=== PATIENT | female | born 1975 | race African-American/Black ===

== ENCOUNTER 2016-09-30 17:36 | Observation (INO) | payer SELFPAY ==
[~2016-09-30] VITALS: Ht 170.2 cm; Wt 107.0 kg
[~2016-09-30 17:36] MED LIST: 1-ME1LIQ PO; ATEN-102 PO; BUTA1CAP PO; GLUCTAB PO; HYDR-3535 PO; INSU100V SQ; LISI-587 PO; NAPR-576 PO; XANA2TAB2 PO; ZOFR4TAB3 SL
[2016-09-30 17:39] VITALS: BP_SYST 194; BP_SYST 202; BP_DIAS 112; BP_DIAS 116; PULSE 77; RESP 17; TEMP 98.2; O2SAT 98
[2016-09-30] MEDS ORDERED: NITROGLYCERIN 0.4 MG SL 25 TABS/BTL SL ONE (18:00)
[2016-09-30] MEDS ORDERED: MORPHINE SULFATE 4 MG/ML INJ IV PUSH ONE (18:00)
[2016-09-30] MEDS ORDERED: ASPIRIN 81 MG CHEW TAB PO ONE (18:00)
[2016-09-30] MEDS ORDERED: ONDANSETRON HCL 4 MG/2 ML VIAL IV PUSH ONE (18:00)
[2016-09-30] MEDS ORDERED: SODIUM CHLORIDE 0.9% FLUSH 10 ML FLUSH IVF PRN (18:00)
--- NOTE | 2016-09-30 18:00 | PD ---
HPI Chief Complaint: Chest Pain Time Seen by Provider: 17:47 Travel History International Travel<30 days: No Contact w/Intl Traveler<30days: No Traveled to known affect area: No History of Present Illness HPI The patient is a 40-year-old after [place]og[place] female who presents emergency department for chest pain. The patient states she developed chest pain or proximal V6 a.m. The patient states she was awakened by left-sided, sharp, stabbing chest pain that radiates into the left arm. The patient states the pain radiates into the left arm is associated with mild numbness to left arm. The pain is intermittent, sharp, and lasts approximately 20-30 seconds and then self resolves. She denies any exertional symptoms associated with her chest pain and denies any exacerbation of her pain with movement. The patient does have a history of hypertension and diabetes, denies any known history of coronary artery disease, hyperlipidemia, or tobacco use. The patient thinks she had a negative stress test one year ago at [facility]. The patient denies any nausea, vomiting, or diaphoresis. The patient denies any previous history of pulmonary embolism or DVT. She denies any recent hospitalizations or surgeries. However, she did recently travel from [place] to [place], as of yesterday. PFSH Past Medical History Anemia: Yes Anxiety: Yes Cardiovascular Problems: Yes Chemotherapy: No Chest Pain: No Congestive Heart Failure: No Diabetes: Yes Endocrine: Yes Genitourinary: No Headaches: Yes Hypertension: Yes Immune Disorder: No Musculoskeletal: No Neurologic: No Psychiatric: No Reproductive: No Respiratory: No Migraines: Yes Triglycerides - High: Yes ?: Not LMP: 09/2016 : 0 Para: 0 Past Surgical History Other Surgery: No Social History Alcohol Use: Yes (OCCASIONALLY) Tobacco Use: No Substance Use: Yes (POT OCC) Allergies-Medications (Allergen,Severity, Reaction): Coded Allergies: No Known Allergies (Unverified , 09/30/16) Reported Meds & Prescriptions Reported Meds & Active Scripts Active Reported Humalog Inj (Insulin Human Lispro) 1,000 Unit/10 Ml Vial 25 Units SQ DAILY IN THE PM Humalog Inj (Insulin Human Lispro) 1,000 Unit/10 Ml Vial 35 Units SQ DAILY IN THE AM Metformin (Metformin HCl) 500 Mg Tab 500 Mg PO BID With meals Coreg (Carvedilol) 3.125 Mg Tab 3.125 Mg PO BID Lisinopril-Hctz 20-25 Mg Tab 1 Tab PO BID Review of Systems Except as stated in HPI: all other systems reviewed are Neg General / Constitutional: No: Fever HENT: No: Lightheadedness Cardiovascular: Positive: Chest Pain or Discomfort, No: Diaphoresis, Dyspnea on exertion Respiratory: Positive: Shortness of Breath Gastrointestinal: No: Nausea, Vomiting, Abdominal Pain Musculoskeletal: No: Weakness, Edema Neurologic: No: Dizziness Physical Exam Narrative GENERAL: Awake, alert, 40-year-old female who appears her stated age and is in no acute respiratory distress. SKIN: Focused skin assessment warm/dry. HEAD: Atraumatic. Normocephalic. EYES: No injection or drainage. ENT: No nasal bleeding or discharge. Mucous membranes pink and moist. NECK: Trachea midline. No JVD. CARDIOVASCULAR: Regular rate and rhythm. No murmur appreciated. Palpation the chest wall does not reproduce her symptoms. RESPIRATORY: No accessory muscle use. Clear to auscultation. Breath sounds equal bilaterally. GASTROINTESTINAL: Abdomen soft, non-tender, nondistended. No rebound tenderness. MUSCULOSKELETAL: No obvious deformities. No clubbing. No cyanosis. No edema. Calves are soft bilaterally. NEUROLOGICAL: Awake and alert. No obvious cranial nerve deficits. Motor grossly within normal limits. Normal speech. PSYCHIATRIC: Appropriate mood and affect; insight and judgment normal. Data Data Last Documented VS Vital Signs Date Time Temp Pulse Resp B/P Pulse Ox O2 Delivery O2 Flow Rate FiO2 09/30/16 19:01 85 16 152/86 98 Room Air 09/30/16 17:39 98.2 Orders Electrocardiogram (09/30/16 17:54) Ckmb (Isoenzyme) Profile (09/30/16 17:54) Complete Blood Count With Diff (09/30/16 17:54) Comprehensive Metabolic Panel (09/30/16 17:54) D-Dimer (09/30/16 17:54) Magnesium (Mg) (09/30/16 17:54) Prothrombin Time / Inr (Pt) (09/30/16 17:54) Act Partial Throm Time (Ptt) (09/30/16 17:54) Troponin I (09/30/16 17:54) Lipase (09/30/16 17:54) Chest, Single Ap (09/30/16 17:54) Ecg Monitoring (09/30/16 17:54) Bilateral Bp Monitoring (09/30/16 17:54) Iv Access Insert/Monitor (09/30/16 17:54) Oximetry (09/30/16 17:54) Oxygen Administration (09/30/16 17:54) Aspirin Chew (Aspirin Chew) (09/30/16 18:00) Morphine Inj (Morphine Inj) (09/30/16 18:00) Sodium Chloride 0.9% Flush (Ns Flush) (09/30/16 18:00) Nitroglycerin Sl (Nitrostat Sl) (09/30/16 18:00) Ondansetron Inj (Zofran Inj) (09/30/16 18:00) CKMB (09/30/16 18:10) CKMB% (09/30/16 18:10) Activity Bed Rest With Brp (09/30/16 20:06) Vital Signs (Adult) Q4H (09/30/16 20:06) Cardiac Rhythm .As Directed (09/30/16 20:06) ^ Notify Dr: Other .PRN (09/30/16 20:06) ^ Notify Dr. Parameters (09/30/16 20:06) Resp Oxygen Nasal Cannula (09/30/16 ) Ckmb (Isoenzyme) Profile (09/30/16 21:10) Ckmb (Isoenzyme) Profile (10/01/16 00:10) Troponin I (09/30/16 21:10) Troponin I (10/01/16 00:10) Electrocardiogram (09/30/16 21:10) Electrocardiogram (10/01/16 00:10) ^ Obtain (09/30/16 20:06) Sodium Chloride 0.9% Flush (Ns Flush) (09/30/16 20:15) Nutritional Services Host / Telemetry NATASHA.Q8H (09/30/16 20:06) Admit Order (Ed Use Only) (09/30/16 ) Labs Laboratory Tests Test 09/30/16 18:10 White Blood Count 7.6 TH/MM3 Red Blood Count 6.43 MIL/MM3 Hemoglobin 13.0 GM/DL Hematocrit 42.2 % Mean Corpuscular Volume 65.6 FL Mean Corpuscular Hemoglobin 20.3 PG Mean Corpuscular Hemoglobin 30.9 % Concent Red Cell Distribution Width 16.5 % Platelet Count 279 TH/MM3 Mean Platelet Volume 10.1 FL Neutrophils (%) (Auto) 70.9 % Lymphocytes (%) (Auto) 22.3 % Monocytes (%) (Auto) 5.0 % Eosinophils (%) (Auto) 1.0 % Basophils (%) (Auto) 0.8 % Neutrophils # (Auto) 5.4 TH/MM3 Lymphocytes # (Auto) 1.7 TH/MM3 Monocytes # (Auto) 0.4 TH/MM3 Eosinophils # (Auto) 0.1 TH/MM3 Basophils # (Auto) 0.1 TH/MM3 CBC Comment AUTO DIFF Differential Comment AUTO DIFF CONFIRMED Platelet Estimate NORMAL Platelet Morphology Comment NORMAL Ovalocytes 1+ Prothrombin Time 10.3 SEC Prothromb Time International 0.9 RATIO Ratio Activated Partial 26.6 SEC Thromboplast Time D-Dimer Quantitative (PE/DVT) 0.44 MG/L FEU Sodium Level 136 MEQ/L Potassium Level 3.1 MEQ/L Chloride Level 98 MEQ/L Carbon Dioxide Level 29.6 MEQ/L Anion Gap 8 MEQ/L Blood Urea Nitrogen 6 MG/DL Creatinine 0.77 MG/DL Estimat Glomerular Filtration 102 ML/MIN Rate Random Glucose 353 MG/DL Calcium Level 8.6 MG/DL Magnesium Level 2.0 MG/DL Total Bilirubin 0.6 MG/DL Aspartate Amino Transf 13 U/L (AST/SGOT) Alanine Aminotransferase 18 U/L (ALT/SGPT) Alkaline Phosphatase 109 U/L Total Creatine Kinase 110 U/L Creatine Kinase MB 0.7 NG/ML Troponin I LESS THAN 0.02 NG/ML Total Protein 7.6 GM/DL Albumin 3.6 GM/DL Lipase 221 U/L [facility] Medical Decision Making Medical Screen Exam Complete: Yes Emergency Medical Condition: Yes Medical Record Reviewed: Yes Interpretation(s) EKG reveals sinus bradycardia with a heart rate of 59. Inverted T waves noted in lead 2, 3, and aVF. Last Impressions Chest X-Ray 09/30/16 8214 Signed Impressions: Service Date/Time: Friday, September 30, 2016 18:18 - CONCLUSION: No acute disease. Tej Oswald MD Differential Diagnosis Differential diagnosis includes hypertensive urgency, hypertensive emergency, acute coronary syndrome, pulmonary embolism, GERD, esophageal spasm, pneumonia, radiculopathy. Narrative Course IV was established, labs are drawn and sent, and the patient was placed on cardiac telemetry monitoring and continuous pulse oximetry monitoring. EKG was ordered and interpreted. Chest x-ray was obtained. D-dimer was sent to lab. The patient was administered aspirin, morphine, Zofran, nitroglycerin sublingual. We attempted to obtain medical records of the patient's stress test that was performed at [facility] one year ago. Records show that the patient had a stress test performed on March 23, 2015, like CT scan nuclear stress test that was read by Dr. Hand which revealed no EKG changes would like CT scan. Normal left ventricular size and normal systolic function. Inferior wall diaphragmatic tissue attenuation. Mild ischemia a small area of the septal wall with mild reversibility. The patient states they did not perform a cardiac catheterization at that time. The patient does have risk factors with what appears to be an abnormal stress test performed at 2014. Therefore, patient will be 23 hour observation to the chest pain Center if troponin is negative and will be admitted to the medical service of troponin is positive. The patient was signed out to the oncoming physician at 7 PM with laboratory evaluation pending. Diagnosis Primary Impression: Chest pain Qualified Code: R07.9 - Chest pain, unspecified type Admitting Information Admitting Physician Requests: Observation Condition: Stable Zander Lee MD Sep 30, 2016 18:00
[2016-09-30 18:33] VITALS: RESP 18; O2SAT 100
--- NOTE | 2016-09-30 18:34 | RADRPT ---
EXAM DATE/TIME: 09/30/2016 18:18 [facility] COMPARISON: CHEST SINGLE AP, October 30, 2015, 11:25. INDICATIONS : Chest pain. Short of breath. Numbness in hands. MEDICAL HISTORY : None. SURGICAL HISTORY : None. ENCOUNTER: Initial ACUITY: 1 day PAIN SCORE: 4/10 LOCATION: Bilateral chest FINDINGS: A single view of the chest demonstrates the lungs to be symmetrically aerated without evidence of mas s, infiltrate or effusion. The cardiomediastinal contours are unremarkable. Osseous structures are intact. CONCLUSION: No acute disease. Tej Oswald MD on September 30, 2016 at 18:32 Board Certified Radiologist. This report was verified electronically.
[2016-09-30 18:39] LABS: AUTOMATED NEUTROPHIL # 5.4 TH/MM3 (1.8-7.7); BASOPHIL # 0.1 TH/MM3 (0-0.2); BASOPHIL % 0.8 % (0.0-2.0); EOSINOPHIL # 0.1 TH/MM3 (0-0.4); HEMATOCRIT 42.2 % (35.0-46.0); LYMPH % 22.3 % (9.0-44.0); LYMPHOCYTE # 1.7 TH/MM3 (1.0-4.8); MEAN CELL VOLUME 65.6 FL (80.0-100.0); MEAN CORPUSCULAR HEMOGLOBIN 20.3 PG (27.0-34.0); MEAN CORPUSCULAR HGB CONC 30.9 % (32.0-36.0); NEUT % 70.9 % (16.0-70.0); PLATELET COUNT 279 TH/MM3 (150-450); RED BLOOD COUNT 6.43 MIL/MM3 (4.00-5.30); RED CELL DISTRIBUTION WIDTH 16.5 % (11.6-17.2); WHITE BLOOD COUNT 7.6 TH/MM3 (4.0-11.0)
[2016-09-30 18:42] LABS: HEMO FLAGS AUTO DIFF
[2016-09-30 18:52] LABS: ANION GAP 8 MEQ/L (5-15); AST (GOT) 13 U/L (15-37); BICARBONATE 29.6 MEQ/L (21.0-32.0); BLOOD UREA NITROGEN 6 MG/DL (7-18); CHLORIDE 98 MEQ/L (98-107); GLOMERULAR FILTRATION RATE 102 ML/MIN (>89); POTASSIUM 3.1 MEQ/L (3.5-5.1); SODIUM (NA) 136 MEQ/L (136-145)
[2016-09-30] MEDS ORDERED: CARV3.125 PO (18:54)
[2016-09-30] MEDS ORDERED: ATEN100T PO (18:54)
[2016-09-30] MEDS ORDERED: LISI20TA3 PO (18:54)
[2016-09-30] MEDS ORDERED: METF500T PO (18:54)
[2016-09-30] MEDS ORDERED: HUMALOG SQ ×2 (18:54)
[2016-09-30 18:57] LABS: ALKALINE PHOSPHATASE 109 U/L (45-117); ALT (GPT) 18 U/L (10-53); APTT (PATIENT) 26.6 SEC (24.3-30.1); CREATINE KINASE 110 U/L (26-192); INTERNATIONAL NORMALIZED RATIO 0.9 RATIO; PROTHROMBIN TIME - PATIENT 10.3 SEC (9.8-11.6); TOTAL BILIRUBIN ADULT 0.6 MG/DL (0.2-1.0)
[2016-09-30 19:01] VITALS: BP 152/86; PULSE 85; RESP 16; O2SAT 98
[2016-09-30 19:09] LABS: OVALOCYTES 1+ (NORMAL); PLATELET ESTIMATE SMEAR NORMAL (NORMAL); PLATELET MORPHOLOGY NORMAL (NORMAL); SCAN/DIFF AUTO DIFF CONFIRMED
[2016-09-30 19:10] LABS: CKMB 0.7 NG/ML (0.5-3.6)
[2016-09-30] MEDS ORDERED: SODIUM CHLORIDE 0.9% FLUSH 10 ML FLUSH IV FLUSH PRN (20:15)
--- NOTE | 2016-09-30 20:16 | PD ---
Physical Exam Narrative Patient is a 40-year-old female complaining of chest pain. She signed out to me by Dr. Lee to follow-up labs in place an chest pain center. Please see his documentation for complete history and physical. Briefly patient has been complaining of some sharp chest pain and pain in her arm. She had an abnormal stress test done in 2014. Data Data Last Documented VS Vital Signs Date Time Temp Pulse Resp B/P Pulse Ox O2 Delivery O2 Flow Rate FiO2 09/30/16 19:01 85 16 152/86 98 Room Air 09/30/16 17:39 98.2 Orders Electrocardiogram (09/30/16 17:54) Ckmb (Isoenzyme) Profile (09/30/16 17:54) Complete Blood Count With Diff (09/30/16 17:54) Comprehensive Metabolic Panel (09/30/16 17:54) D-Dimer (09/30/16 17:54) Magnesium (Mg) (09/30/16 17:54) Prothrombin Time / Inr (Pt) (09/30/16 17:54) Act Partial Throm Time (Ptt) (09/30/16 17:54) Troponin I (09/30/16 17:54) Lipase (09/30/16 17:54) Chest, Single Ap (09/30/16 17:54) Ecg Monitoring (09/30/16 17:54) Bilateral Bp Monitoring (09/30/16 17:54) Iv Access Insert/Monitor (09/30/16 17:54) Oximetry (09/30/16 17:54) Oxygen Administration (09/30/16 17:54) Aspirin Chew (Aspirin Chew) (09/30/16 18:00) Morphine Inj (Morphine Inj) (09/30/16 18:00) Sodium Chloride 0.9% Flush (Ns Flush) (09/30/16 18:00) Nitroglycerin Sl (Nitrostat Sl) (09/30/16 18:00) Ondansetron Inj (Zofran Inj) (09/30/16 18:00) CKMB (09/30/16 18:10) CKMB% (09/30/16 18:10) Activity Bed Rest With Brp (09/30/16 20:06) Vital Signs (Adult) Q4H (09/30/16 20:06) Cardiac Rhythm .As Directed (3/27/17 20:06) ^ Notify Dr: Other .PRN (09/30/16 20:06) ^ Notify Dr. Parameters (09/30/16 20:06) Resp Oxygen Nasal Cannula (09/30/16 ) Diet Heart Healthy (10/01/16 Breakfast) Ckmb (Isoenzyme) Profile (09/30/16 21:10) Ckmb (Isoenzyme) Profile (10/01/16 00:10) Troponin I (09/30/16 21:10) Troponin I (10/01/16 00:10) Electrocardiogram (09/30/16 21:10) Electrocardiogram (10/01/16 00:10) ^ Obtain (09/30/16 20:06) Sodium Chloride 0.9% Flush (Ns Flush) (09/30/16 20:15) Shredded Filler Cigar Maker Machine / Telemetry NATASHA.Q8H (09/30/16 20:06) Admit Order (Ed Use Only) (09/30/16 ) Labs Laboratory Tests Test 09/30/16 18:10 White Blood Count 7.6 TH/MM3 Red Blood Count 6.43 MIL/MM3 Hemoglobin 13.0 GM/DL Hematocrit 42.2 % Mean Corpuscular Volume 65.6 FL Mean Corpuscular Hemoglobin 20.3 PG Mean Corpuscular Hemoglobin 30.9 % Concent Red Cell Distribution Width 16.5 % Platelet Count 279 TH/MM3 Mean Platelet Volume 10.1 FL Neutrophils (%) (Auto) 70.9 % Lymphocytes (%) (Auto) 22.3 % Monocytes (%) (Auto) 5.0 % Eosinophils (%) (Auto) 1.0 % Basophils (%) (Auto) 0.8 % Neutrophils # (Auto) 5.4 TH/MM3 Lymphocytes # (Auto) 1.7 TH/MM3 Monocytes # (Auto) 0.4 TH/MM3 Eosinophils # (Auto) 0.1 TH/MM3 Basophils # (Auto) 0.1 TH/MM3 CBC Comment AUTO DIFF Differential Comment AUTO DIFF CONFIRMED Platelet Estimate NORMAL Platelet Morphology Comment NORMAL Ovalocytes 1+ Prothrombin Time 10.3 SEC Prothromb Time International 0.9 RATIO Ratio Activated Partial 26.6 SEC Thromboplast Time D-Dimer Quantitative (PE/DVT) 0.44 MG/L FEU Sodium Level 136 MEQ/L Potassium Level 3.1 MEQ/L Chloride Level 98 MEQ/L Carbon Dioxide Level 29.6 MEQ/L Anion Gap 8 MEQ/L Blood Urea Nitrogen 6 MG/DL Creatinine 0.77 MG/DL Estimat Glomerular Filtration 102 ML/MIN Rate Random Glucose 353 MG/DL Calcium Level 8.6 MG/DL Magnesium Level 2.0 MG/DL Total Bilirubin 0.6 MG/DL Aspartate Amino Transf 13 U/L (AST/SGOT) Alanine Aminotransferase 18 U/L (ALT/SGPT) Alkaline Phosphatase 109 U/L Total Creatine Kinase 110 U/L Creatine Kinase MB 0.7 NG/ML Troponin I LESS THAN 0.02 NG/ML Total Protein 7.6 GM/DL Albumin 3.6 GM/DL Lipase 221 U/L MDM Supervised Visit with KYRA: No Narrative Course Labs sent show no acute abnormalities. Patient takes aspirin at home. She is resting comfortably at this time. She'll be placed in the chest pain center for further management. Diagnosis Primary Impression: Chest pain Qualified Code: R07.9 - Chest pain, unspecified type Admitting Information Admitting Physician Requests: Observation Condition: Stable Alee Kumar MD Sep 30, 2016 20:16
[2016-09-30 21:53] LABS: CREATINE KINASE 87 U/L (26-192)
[2016-09-30 22:06] VITALS: BP 143/78; PULSE 84; RESP 16; O2SAT 98
[2016-09-30 23:17] VITALS: PULSE 77
[2016-10-01 01:11] LABS: CREATINE KINASE 89 U/L (26-192)
[2016-10-01 01:22] VITALS: BP 154/69; PULSE 72; RESP 18; TEMP 98.8; O2SAT 99
[2016-10-01 03:34] VITALS: BP 148/67; PULSE 87; RESP 18; TEMP 98.7; O2SAT 98
[2016-10-01 08:33] VITALS: BP 139/97; PULSE 69; RESP 18; TEMP 96.7; O2SAT 92
[2016-10-01] MEDS ORDERED: POTASSIUM CHLORIDE 25 MEQ EFFERVESCENT TAB PO ONE (08:45)
[2016-10-01] MEDS ORDERED: metFORMIN HCL 500 MG TAB PO SCH (09:00)
[2016-10-01] MEDS ORDERED: CARVEDILOL 3.125 MG TAB PO SCH (09:00)
[2016-10-01] MEDS ORDERED: LISINOPRIL 20 MG TAB PO SCH (09:00)
[2016-10-01] MEDS ORDERED: ATEN50TA PO (09:58)
[2016-10-01] MEDS ORDERED: DEXTROSE 50% IN WATER 50 ML VIAL(D50) IV PRN (10:00)
[2016-10-01] MEDS ORDERED: GLUCAGON 1 MG/ML VIAL IM/SQ PRN (10:00)
--- NOTE | 2016-10-01 10:20 | HHI.HP ---
HPI Primary Care Physician Non-Staff Chief Complaint Chest pain History of Present Illness This is a 40-year-old female that presents to ED with a complaint of chest discomfort. She states that yesterday morning she was awoken at 6:30 with a right sided sharp chest discomfort. We will last for a split second but it reoccurred a few more times. She thought it might have been gas so she took some Gas-X but it really didn't help. She eventually fell back to sleep. She will back up around 3:00 yesterday afternoon with a left-sided discomfort in her chest. It was a similar sharp discomfort lasting a split second but reoccurred 3 or 4 more times. She became concerned and came to the ED. She was evaluated for chest discomfort about 2 years ago at a different facility. She says been following up with Dr. Hand last seeing him 6 months ago. The ER physician was able to obtain records from a stress test in March 2015 revealing mild ischemia a small area of septal wall with a 72%. She has been fine Dr. Hand since. Denies recent illness. Denies fevers or chills. She had no associated shortness red nausea or diaphoresis with her symptoms. Review of Systems General: Patient denies fevers, chills recent, and recent travel HEENT: Patient denies headache, sore throat, difficulty swallowing. Cardiovascular: Has the chest discomfort as mentioned above. Denies sensation of heart beating rapidly or irregularly. No syncope. Denies diaphoresis. Respiratory: Denies shortness of breath or inspirational chest discomfort. Denies coughing wheezing or hemoptysis. GI: Patient denies nausea, vomiting, diarrhea, abdominal pain, bloody stools. Musculoskeletal: Patient denies joint pain or edema. Denies calf pain or edema. Neurovascular: Patient denies numbness, tingling, weakness in extremities. Denies headache. Endocrine: Denies polyuria and polydipsia. Hematologic: Denies easy bruising. Skin: Denies rash or itching. Past Family Social History Allergies: Coded Allergies: No Known Allergies (Unverified , 09/30/16) Past Medical History Hypertension, diabetes, chronic back pain. Denies hyperlipidemia and known CAD. Reported Medications Reported Meds & Active Scripts Active Reported Atenolol 50 Mg Tab 50 Mg PO DAILY Humalog Inj (Insulin Human Lispro) 1,000 Unit/10 Ml Vial 25 Units SQ DAILY IN THE PM Humalog Inj (Insulin Human Lispro) 1,000 Unit/10 Ml Vial 35 Units SQ DAILY IN THE AM Metformin (Metformin HCl) 500 Mg Tab 500 Mg PO BID With meals Coreg (Carvedilol) 3.125 Mg Tab 3.125 Mg PO BID Lisinopril-Hctz 20-25 Mg Tab 1 Tab PO BID Active Ordered Medications Current Medications Medications (Trade) Dose Ordered Sig/Raquel Route Start Time Stop Time Status Last Admin (NS Flush) 2 ml UNSCH PRN IVF 09/30/16 18:00 (NS Flush) 2 ml UNSCH PRN IV FLUSH 09/30/16 20:15 (Glucophage) 500 mg BID PO 10/01/16 09:00 10/01/16 10:06 (Prinivil) 20 mg BID PO 10/01/16 09:00 10/01/16 10:06 (Coreg) 3.125 mg BID PO 10/01/16 09:00 10/01/16 10:06 (D50w (Vial) Inj) 25 ml UNSCH PRN IV 10/01/16 10:00 UNV (Glucagon Inj) 1 mg UNSCH PRN IM/SQ 10/01/16 10:00 UNV Family History Her brother had a cardiac transplant in his 30s. Her father had his first MA at age 52 and at 67 of a CVA. Social History Patient is a nonsmoker. Denies alcohol or illicit drugs. She is disabled secondary to chronic back pain. Physical Exam Vital Signs Vital Signs Date Time Temp Pulse Resp B/P Pulse Ox O2 Delivery O2 Flow Rate FiO2 10/01/16 08:33 96.7 69 18 139/97 92 10/01/16 03:34 98.7 87 18 148/67 98 10/01/16 01:22 98.8 72 18 154/69 99 09/30/16 23:17 77 09/30/16 22:06 84 16 143/78 98 09/30/16 19:01 85 16 152/86 98 Room Air 09/30/16 18:33 18 100 Room Air 09/30/16 18:33 100 Room Air 09/30/16 17:56 18 09/30/16 17:39 202/112 09/30/16 17:39 98.2 77 17 194/116 98 Physical Exam GENERAL: This is a well-nourished, well-developed patient, in no apparent distress. Patient speaks in clear complete sentences. Patient is pleasant. HEENT: Head is atraumatic and normocephalic. Neck is supple without lymphadenopathy and trachea is midline. No JVD or carotid bruits. CARDIOVASCULAR: Regular rate and rhythm without murmurs, gallops, or rubs. RESPIRATORY: Clear to auscultation. Breath sounds equal bilaterally. No wheezes , rales, or rhonchi. Chest wall is nontender. No use of accessory muscles. GASTROINTESTINAL: Abdomen is nontender, nondistended. Abdomen soft. No obvious pulsatile mass or bruit. No CVA tenderness. Strong femoral pulses bilaterally. Normal bowel sounds in all quadrants. MUSCULOSKELETAL: Patient is moving upper and lower extremities freely. No calf tenderness or edema, no Homans sign. Strong pulses in upper and lower extremities. NEUROLOGICAL: Patient is alert and oriented. Cranial nerves 2-12 are grossly intact. No focal deficits and speech is clear. SKIN: No rash and turgor is normal. Laboratory Laboratory Tests Test 09/30/16 09/30/16 10/01/16 18:10 21:10 00:05 White Blood Count 7.6 Red Blood Count 6.43 Hemoglobin 13.0 Hematocrit 42.2 Mean Corpuscular Volume 65.6 Mean Corpuscular Hemoglobin 20.3 Mean Corpuscular Hemoglobin 30.9 Concent Red Cell Distribution Width 16.5 Platelet Count 279 Mean Platelet Volume 10.1 Neutrophils (%) (Auto) 70.9 Lymphocytes (%) (Auto) 22.3 Monocytes (%) (Auto) 5.0 Eosinophils (%) (Auto) 1.0 Basophils (%) (Auto) 0.8 Neutrophils # (Auto) 5.4 Lymphocytes # (Auto) 1.7 Monocytes # (Auto) 0.4 Eosinophils # (Auto) 0.1 Basophils # (Auto) 0.1 CBC Comment AUTO DIFF Differential Comment AUTO DIFF CONFIRMED Platelet Estimate NORMAL Platelet Morphology Comment NORMAL Ovalocytes 1+ Prothrombin Time 10.3 Prothromb Time International 0.9 Ratio Activated Partial 26.6 Thromboplast Time D-Dimer Quantitative (PE/DVT) 0.44 Sodium Level 136 Potassium Level 3.1 Chloride Level 98 Carbon Dioxide Level 29.6 Anion Gap 8 Blood Urea Nitrogen 6 Creatinine 0.77 Estimat Glomerular Filtration 102 Rate Random Glucose 353 Calcium Level 8.6 Magnesium Level 2.0 Total Bilirubin 0.6 Aspartate Amino Transf 13 (AST/SGOT) Alanine Aminotransferase 18 (ALT/SGPT) Alkaline Phosphatase 109 Total Creatine Kinase 110 87 89 Creatine Kinase MB 0.7 Troponin I LESS THAN 0.02 LESS THAN 0.02 LESS THAN 0.02 Total Protein 7.6 Albumin 3.6 Lipase 221 Result Diagram: 09/30/16180909/30/161809 Imaging Last Impressions Chest X-Ray 09/30/16 1754 Signed Impressions: Service Date/Time: Friday, September 30, 2016 18:18 - CONCLUSION: No acute disease. Tej Oswald MD Course EKGs have sinus rhythm with with nonspecific T-wave changes. Assessment and Plan Assessment and Plan * Chest pain: Patient's discomfort appears to be atypical. She had serial cardiac enzymes and EKGs for ruling out purposes. She was evaluated by Dr. Quach of cardiology in the chest pain center. I discussed this patient with her enterprise integration developer Dr. Hand. Her symptoms are atypical and he is requested that she go home and he'll see her within a week most likely this Friday. No further cardiac testing at this time. This was discussed with the patient and she is agreeable to this plan. She certainly should return to the ED for any intermittent issues. * Diabetes: Patient is a follow diabetic diet. She will have sliding scale insulin coverage while in the ER. She should resume her medication at home. But again she needs to follow a proper diabetic diet and exercise. * Hypertension: Continue current medication. * Obesity: She was counseled on importance of diet, excise, and weight loss. * Chronic back pain: Continue current treatment. Ab Loving Oct 01, 2016 10:19
--- NOTE | 2016-10-01 10:23 | HHI.DCPOC ---
Discharge Care Plan Diagnosis: (1) Chest pain (2) Hypertension (3) Diabetes mellitus (4) Chronic back pain (5) Obesity (6) Hypokalemia Goals to Promote Your Health SINCE YOU ARE DIABETIC, DISCUSS WITH YOUR PRIMARY CARE PHYSICIAN THE NEED OF BEING ON A CHOLESTEROL MEDICATION. * To prevent worsening of your condition and complications * To maintain your health at the optimal level Directions to Meet Your Goals Take your medications as prescribed Follow your dietary instruction Follow activity as directed Keep your appointments as scheduled Take your immunizations and boosters as scheduled If your symptoms worsen call your PCP, if no PCP go to Urgent Care Center or Emergency Room Smoking is Dangerous to Your Health. Avoid second hand smoke Call the 24-hour hour crisis hotline for domestic abuse at Ab Loving Oct 01, 2016 10:23
[2016-10-01] MEDS ORDERED: INSULIN ASPART SUPPLEMENTAL SCALE SQ SCH (11:00)
--- NOTE | 2016-10-01 14:29 | EKG ---
Date Performed: 10/01/2016 Time Performed: 00:26:45 PTAGE: 40 years EKG: Sinus rhythm WITH SINUS ARRHYTHMIA NONSPECIFIC T-WAVE ABNORMALITY ABNORMAL ECG Since PREVIOUS TRACING , no significant change noted PREVIOUS TRACIN09/30/2016 21.10 DOCTOR: Louann Quach Interpretating Date/Time 10/01/2016 14:27:23
--- NOTE | 2016-10-01 14:32 | EKG ---
Date Performed: 09/30/2016 Time Performed: 18:01:13 PTAGE: 40 years EKG: SINUS BRADYCARDIA NONSPECIFIC T-WAVE ABNORMALITY BORDERLINE ECG Since PREVIOUS TRACING , no significant change noted PREVIOUS TRACIN10/30/2015 12.16 DOCTOR: Louann Quach Interpretating Date/Time 10/01/2016 14:30:34
--- NOTE | 2016-10-01 14:35 | EKG ---
Date Performed: 09/30/2016 Time Performed: 21:10:40 PTAGE: 40 years EKG: SINUS BRADYCARDIA WITH SINUS ARRHYTHMIA POSSIBLE ANTERIOR MYOCARDIAL INFARCTION ABNORMAL EC G Since PREVIOUS TRACING , no significant change noted PREVIOUS TRACIN09/30/2016 18.01 DOCTOR: Louann Quach Interpretating Date/Time 10/01/2016 14:34:34
== END 2016-10-01 11:57 | disposition home or self-care (01) ==
LOC: NEPE 17:36 → NEDA 20:10 → NEPGCP 22:39
PROVIDERS: ADMIT Internal Medicine Cardiovascular Disease; ATTEND Internal Medicine Cardiovascular Disease
DX: R07.89 Other chest pain (principal); I10 Essential (primary) hypertension; E11.9 Type 2 diabetes mellitus without complications; D64.9 Anemia, unspecified; F41.9 Anxiety disorder, unspecified; M54.9 Dorsalgia, unspecified; G89.29 Other chronic pain; E66.9 Obesity, unspecified; Z79.4 Long term (current) use of insulin; Z79.84 Long term (current) use of oral hypoglycemic drugs; Z68.36 Body mass index [BMI] 36.0-36.9, adult
CPT/HCPCS: 71010; 80053; 82550; 82552; 82948; 83690; 83735; 84484; 85025; 85379; 85610; 85730; 93005; 96374; 96375; 99285; G0378; J2270; J2405